=== PATIENT | male | born 1955 | race Caucasian/White ===

== ENCOUNTER 2016-11-04 20:08 | Emergency (ER) | payer OTHER ==
[2016-11-04 20:13] VITALS: BP 136/75; PULSE 66; TEMP 97; BMI 21.7
--- NOTE | 2016-11-04 20:27 | PDOC ---
History of Present Illness - General Chief Complaint: Back Pain Stated Complaint: ABDOMINAL PAIN Time Seen by Provider: 11/04/16 20:15 History Source: Patient Exam Limitations: No Limitations - History of Present Illness Initial Comments: 11/04/16 20:28 61-year-old male with a history of hypertension presents with right sided low back pain. Pain is described as 8/10 sharp, intermittent right sided back pain radiating down laterally to the right knee. Patient states he was picking up a heavy suitcase and attempted to turn laterally to the right when he felt a sudden pull to his right back. The pain is exacerbated on movement and there are no alleviating factors. Patient denies abdominal pain, saddle anesthesia, weakness, extremity numbness or tingling sensation. Patient denies any bladder or bowel dysfunction. Occurred: reports: this afternoon (at 12noon) Severity: reports: moderate Pain Location: reports: back (right) Method of Injury: Yes: other (twisting motion) Modifying Factors: improves with: None Loss of Consciousness: no loss of consciousness Past History - Past Medical History Allergies/Adverse Reactions: Allergies Allergy/AdvReac Type Severity Reaction Status Date / Time No Known Allergies Allergy Verified 11/04/16 20:12 Home Medications: Ambulatory Orders Amlodipine Besylate [Norvasc -] 5 mg PO DAILY 02/26/16 Tamsulosin HCl [Flomax] 0.4 mg PO DAILY 02/26/16 Valsartan [Diovan] 160 mg PO DAILY 02/26/16 Hydrocodone/Acetaminophen [Vicodin 5-300 mg Tablet] 1 each PO TID #15 tablet MDD 3 11/04/16 Diabetes: Yes (borderline) HTN: Yes - Surgical History Appendectomy: Yes - Immunization History Immunization Up to Date: No - Psycho/Social/Smoking Cessation Hx Anxiety: No Suicidal Ideation: No Smoking Status: No Smoking History: Never smoked Have you smoked in the past 12 months: No Number of Cigarettes Smoked Daily: 0 Hx Alcohol Use: No Drug/Substance Use Hx: No Substance Use Type: None Review of Systems - Review of Systems Able to Perform ROS?: Yes Comments:: 11/04/16 20:26 CONSTITUTIONAL: Absent: fever, chills, diaphoresis, generalized weakness, malaise, loss of appetite HEENT: Absent: rhinorrhea, nasal congestion, throat pain, throat swelling, difficulty swallowing, mouth swelling, ear pain, eye pain, visual Changes CARDIOVASCULAR: Absent: chest pain, loss of consciousness, palpitations, irregular heart rate, peripheral edema RESPIRATORY: Absent: cough, shortness of breath, dyspnea with exertion, orthopnea, wheezing, stridor, hemoptysis GASTROINTESTINAL: Absent: abdominal pain, abdominal distension, nausea, vomiting, diarrhea, constipation, melena, hematochezia GENITOURINARY: Absent: dysuria, frequency, urgency, hesitancy, hematuria, flank pain, genital pain MUSCULOSKELETAL: Absent: myalgia, arthralgia, joint swelling SKIN: Absent: rash, itching, pallor HEMATOLOGIC/IMMUNOLOGIC: Absent: easy bleeding, easy bruising, lymphadenopathy, frequent infections ENDOCRINE: Absent: unexplained weight gain, unexplained weight loss, heat intolerance, cold intolerance NEUROLOGIC: Absent: headache, focal weakness or paresthesias, dizziness, unsteady gait, seizure, mental status changes, bladder or bowel incontinence PSYCHIATRIC: Absent: anxiety, depression, suicidal or homicidal ideation, hallucinations. Is the patient limited Kyrgyz proficient: No *Physical Exam - Vital Signs Last Vital Signs Temp Pulse Resp BP Pulse Ox 97 F L 66 18 136/75 99 11/04/16 20:09 11/04/16 20:09 11/04/16 20:09 11/04/16 20:09 11/04/16 20:09 - Physical Exam Comments: 11/04/16 20:27 GENERAL: Well developed, well nourished. Awake and alert. No acute distress. HEENT: Normocephalic, atraumatic. PERRLA, EOMI. No conjunctival pallor. Sclera are non- icteric. Moist mucous membranes. Oropharynx is clear. NECK: Supple. Full ROM. No JVD. Carotid pulses 2+ and symmetric, without bruits. No thyromegaly. No lymphadenopathy. CARDIOVASCULAR: Regular rate and rhythm. No murmurs, rubs, or gallops. Distal pulses are 2+ and symmetric. PULMONARY: No evidence of respiratory distress. Lungs clear to auscultation bilaterally. No wheezing, rales or rhonchi. ABDOMINAL: Soft. Non-tender. Non-distended. No rebound or guarding. No organomegaly. Normoactive bowel sounds. MUSCULOSKELETAL Normal range of motion at all joints. No bony deformities or tenderness. No CVA tenderness. EXTREMITIES: No cyanosis. No clubbing. No edema. No calf tenderness. SKIN: Warm and dry. Normal capillary refill. No rashes. No jaundice. NEUROLOGICAL: Alert, awake, appropriate. Cranial nerves 2-12 intact. No deficits to light touch and temperature in face, upper extremities and lower extremities. No motor deficits in the in face, upper extremities and lower extremities. Normoreflexic in the upper and lower extremities. Normal speech. Toes are down- going bilaterally. Gait is normal without ataxia. PSYCHIATRIC: Cooperative. Good eye contact. Appropriate mood and affect. ED Treatment Course - RADIOLOGY Radiograph Interpretation: 11/04/16 21:56 XR: L/S spine; neg compression fx Progress Note - Progress Note Progress Note: 2150hrs: Minimal relief *DC/Admit/Observation/Transfer Diagnosis at time of Disposition: Lumbar spine strain Qualifiers: Encounter type: initial encounter Qualified Code(s): S39.012A - Strain of muscle, fascia and tendon of lower back, initial encounter - Discharge Dispostion Disposition: HOME Condition at time of disposition: Improved Admit: No - Prescriptions Prescriptions: Hydrocodone/Acetaminophen [Vicodin 5-300 mg Tablet] 1 each PO TID #15 tablet MDD 3 - Referrals Referrals: Noe Rollins MD [Primary Care Provider] - - Patient Instructions Printed Discharge Instructions: DI for Back Strain or Sprain Additional Instructions: Return to the ER for severe/persistent/worsening symptoms - Post Discharge Activity Work/School Note: Back to Work
[2016-11-04] MEDS ORDERED: KETOROLAC TROMETHAMINE 60 MG/2 ML VIAL IM ONE (20:28)
[2016-11-04] MEDS ORDERED: CYCLOBENZAPRINE HCL 10 MG TABLET (FP) PO ONE (20:28)
[2016-11-04] MEDS ORDERED: KETOROLAC TROMETHAMINE 60 MG/2 ML VIAL ONE (20:30)
[2016-11-04] MEDS ORDERED: CYCLOBENZAPRINE HCL 10 MG TABLET (FP) ONE (20:30)
[2016-11-04] MEDS ORDERED: OXYCODONE/APAP 5/325MG COMBO TABLET PO ONE (21:41)
[2016-11-04] MEDS ORDERED: OXYCODONE/APAP 5/325MG COMBO TABLET ONE (21:53)
== END 2016-11-04 23:24 | disposition home or self-care (01) ==
LOC: JER 20:08
PROC: 3E0233Z Introduction of Anti-inflammatory into Muscle, Percutaneous Approach (ICD-10-PCS; principal; 2016-11-04)
DX: S39.012A Strain of muscle, fascia and tendon of lower back, initial encounter (principal); X58.XXXA Exposure to other specified factors, initial encounter; Y93.9 Activity, unspecified; Y92.9 Unspecified place or not applicable; I10 Essential (primary) hypertension
CPT/HCPCS: 72100-TC; 96372; 99282-25

== ENCOUNTER 2017-07-30 20:59 | Emergency (ER) | payer OTHER, BC ==
--- NOTE | 2017-07-30 21:33 | PDOC ---
Rapid Medical Evaluation Time Seen by Provider: 07/30/17 21:27 Medical Evaluation: Allergies Allergy/AdvReac Type Severity Reaction Status Date / Time No Known Allergies Allergy Verified 11/04/16 20:12 07/30/17 21:27 I have performed a brief in-person person evaluation of the patient. The patient presents with a chief complaint of left wrist pain since fall in bathroom at 3:30pm today. States he was changing his clothes when he fell, used left arm to break fall. Denies dizziness before or after fall and denies head injury of loss of consciousness after fall. Pertinent physical exam findings: NAD unlabored breathing heart s1s2 left wrist swelling, deformity, + tenderness and inability to rom of left wrist I have ordered the following: analgesia, xray of left wrist and forearm The patient will proceed to the ED for further evaluation.
[2017-07-30] MEDS ORDERED: IBUPROFEN 600 MG TABLET (FP) PO ONE (21:35)
[2017-07-30 21:39] VITALS: BP 155/93; PULSE 68; TEMP 98.2; BMI 21.7
--- NOTE | 2017-07-30 22:50 | PDOC ---
History of Present Illness - General Chief Complaint: Pain Stated Complaint: FALL INJURY Time Seen by Provider: 07/30/17 21:27 History Source: Patient Exam Limitations: No Limitations - History of Present Illness Initial Comments: 07/30/17 22:47 Best Contact: Pmhx: Hypertension, enlarged prostate, hyperlipidemia Pshx: Ventral hernia repair, right rotator cuff repair Allergies: NO KNOWN DRUG ALLERGIES 62-year-old male who is right hand dominant presents to the emergency department complaining of pain to the left hand/wrist since approximately 1530 hrs. this afternoon after a slip and fall. Patient states he broke his fall with his outstretched left hand. Patient states he was changing into his clothes when he slipped this afternoon. He denies hitting his head, neck or back. Patient denies headache, dizziness, lightheadedness, facial pains, neck pains, back pains, chest pain, shortness of breath, abdominal pains, extremity numbness or tingling sensation. Wrist pain is described as 5/10 dull nonradiating intermittent discomfort which is exacerbated on touch and alleviated at rest. Past History - Past Medical History Allergies/Adverse Reactions: Allergies Allergy/AdvReac Type Severity Reaction Status Date / Time No Known Allergies Allergy Verified 07/30/17 21:32 Home Medications: Ambulatory Orders Amlodipine Besylate [Norvasc -] 5 mg PO DAILY 02/26/16 COPD: No Diabetes: Yes (borderline) HTN: Yes - Surgical History Appendectomy: Yes - Immunization History Immunization Up to Date: No - Suicide/Smoking/Psychosocial Hx Smoking Status: No Smoking History: Never smoked Have you smoked in the past 12 months: No Number of Cigarettes Smoked Daily: 0 Information on smoking cessation initiated: No Hx Alcohol Use: No Drug/Substance Use Hx: No Substance Use Type: None Review of Systems - Review of Systems Able to Perform ROS?: Yes Comments:: 07/30/17 22:51 CONSTITUTIONAL: Absent: fever, chills, diaphoresis, generalized weakness, malaise, loss of appetite HEENT: Absent: rhinorrhea, nasal congestion, throat pain, throat swelling, difficulty swallowing, mouth swelling, ear pain, eye pain, visual Changes CARDIOVASCULAR: Absent: chest pain, loss of consciousness, palpitations, irregular heart rate, peripheral edema RESPIRATORY: Absent: cough, shortness of breath, dyspnea with exertion, orthopnea, wheezing, stridor, hemoptysis GASTROINTESTINAL: Absent: abdominal pain, abdominal distension, nausea, vomiting, diarrhea, constipation, melena, hematochezia GENITOURINARY: Absent: dysuria, frequency, urgency, hesitancy, hematuria, flank pain, genital pain MUSCULOSKELETAL: +left hand/wrist pain Absent: myalgia, arthralgia, joint swelling SKIN: Absent: rash, itching, pallor HEMATOLOGIC/IMMUNOLOGIC: Absent: easy bleeding, easy bruising, lymphadenopathy, frequent infections Is the patient limited [place]dean proficient: No *Physical Exam - Vital Signs Last Vital Signs Temp Pulse Resp BP Pulse Ox 98.2 F 68 20 155/93 100 07/30/17 21:33 07/30/17 21:33 07/30/17 21:33 07/30/17 21:33 07/30/17 21:33 - Physical Exam Comments: 07/30/17 22:51 GENERAL: Well developed, well nourished. Awake and alert. No acute distress. HEENT: Normocephalic, atraumatic. PERRLA, EOMI. No conjunctival pallor. Sclera are non- icteric. Moist mucous membranes. Oropharynx is clear. NECK: Supple. Full ROM. No JVD. Carotid pulses 2+ and symmetric, without bruits. No thyromegaly. No lymphadenopathy. MUSCULOSKELETAL Normal range of motion at all joints. No bony deformities or tenderness. No CVA tenderness. EXTREMITIES: No cyanosis. No clubbing. No edema. No calf tenderness. SKIN: Warm and dry. Normal capillary refill. No rashes. No jaundice. NEUROLOGICAL: Alert, awake, appropriate. Cranial nerves 2-12 intact. No deficits to light touch and temperature in face, upper extremities and lower extremities. No motor deficits in the in face, upper extremities and lower extremities. Normoreflexic in the upper and lower extremities. Normal speech. Toes are down- going bilaterally. Gait is normal without ataxia. Left hand Decreased R.O.M>/pain to dorsal 2nd and 3rd MC Cap refill <2sec 2 point sensation intact Left wrist 2+ radial pulse Neg pain on palp NEg obv deformities ED Treatment Course - Medications Given in the ED: ED Medications Discontinued Medications Generic Name Dose Route Start Last Admin Trade Name Freq PRN Reason Stop Dose Admin Ibuprofen 600 mg 07/30/17 21:35 07/30/17 21:37 Motrin - PO 07/30/17 21:36 600 mg ONCE ONE Administration *DC/Admit/Observation/Transfer Diagnosis at time of Disposition: Contusion of left hand Qualifiers: Encounter type: initial encounter Qualified Code(s): S60.222A - Contusion of left hand, initial encounter Left wrist sprain Qualifiers: Encounter type: initial encounter Qualified Code(s): S63.502A - Unspecified sprain of left wrist, initial encounter - Discharge Dispostion Disposition: HOME Condition at time of disposition: Stable Admit: No - Referrals Referrals: Geoff Michelle MD [Primary Care Provider] - Jermaine Villalobos MD [Staff Physician] - - Patient Instructions Printed Discharge Instructions: DI for Wrist Sprain, DI for Contusion Additional Instructions: Ice; 20 mins on alternating with 20 mins off for 48 hours while awake. Rest Elevate Follow up with your orthopedic surgeon or the one listed on the discharge form. Return to the ER for severe/persistent/worsening symptoms, extremity numbness/ tingling sensation. Print Language: MALAGASY - Post Discharge Activity
== END 2017-07-30 22:30 | disposition home or self-care (01) ==
LOC: JERFT 20:59
CPT/HCPCS: 73110-TC-LR-FY; 73130-TC-LR-FY; 99281-25

== ENCOUNTER 2020-10-09 09:10 | Emergency (ER) | payer BC, OTHER ==
[2020-10-09 09:19] VITALS: BP 134/81; PULSE 113; TEMP 98.2; BMI 21.7
[2020-10-09] MEDS ORDERED: ACETAMINOPHEN 1000 MG/100 ML VIAL (NON FORMULARY) IVPB ONE (10:01)
[2020-10-09] MEDS ORDERED: SODIUM CHLORIDE 1,000 ML IV STA (10:01)
[2020-10-09] MEDS ORDERED: ONDANSETRON 4 MG/2 ML VIAL IVPUSH ONE (10:01)
[2020-10-09] MEDS ORDERED: FAMOTIDINE 20 MG/50 ML IVPB 20 MG/50 ML MG IVPB ONE ×2 (10:01→10:07)
[2020-10-09] MEDS ORDERED: MAG HYDROX/AL HYDROX/SIMETH 30 ML UNIT-DOSE CUP PO ONE (10:02)
[2020-10-09] MEDS ORDERED: MAG HYDROX/AL HYDROX/SIMETH 30 ML UNIT-DOSE CUP ONE (10:07)
[2020-10-09] MEDS ORDERED: ONDANSETRON 4 MG/2 ML VIAL ONE (10:07)
[2020-10-09] MEDS ORDERED: ACETAMINOPHEN INJECTION 100 ML IVPB ONE (10:07)
[2020-10-09 10:43] LABS: BASO % 0.6 % (0-2.0); EOS % 1.4 % (0-4.5); HEMATOCRIT 39.5 % (35.4-49); HEMOGLOBIN 13.3 GM/dL (11.7-16.9); LYMPH % 13.7 % (8-40); MCH 29.3 pg (25.7-33.7); MCHC 33.8 g/dl (32.0-35.9); MEAN CELL VOLUME 86.6 fl (80-96); MEAN PLT VOLUME 7.9 fl (7.5-11.1); MONO % 4.8 % (3.8-10.2); NEUT % 79.5 % (42.8-82.8); PLATELET COUNT 252 K/MM3 (134-434); RBC 4.56 M/mm3 (4.00-5.60); RDW 13.8 % (11.9-15.9)
[2020-10-09 10:46] LABS: PH,URINE 5.5 (5.0-8.0); URINE APPEARANCE CLEAR; URINE BILIRUBIN NEGATIVE (NEGATIVE); URINE COLOR YELLOW; URINE GLUCOSE (UA) NEGATIVE (NEGATIVE); URINE KETONE TRACE (NEGATIVE); URINE LEUK ESTERASE NEGATIVE (NEGATIVE); URINE NITRITE NEGATIVE (NEGATIVE); URINE PROTEIN NEGATIVE (NEGATIVE); URINE UROBILINOGEN 0.2 mg/dL (0.2-1.0)
[2020-10-09 10:50] LABS: INR 0.98 (0.83-1.09); PROTHROMBIN TIME (PATIENT) 11.9 SEC (9.7-13.0)
[2020-10-09 11:18] LABS: CHLORIDE 105 mmol/L (98-107); SODIUM 137 mmol/L (136-145)
[2020-10-09 11:20] LABS: ALBUMIN 3.9 g/dl (3.4-5.0); ANION GAP 4 MMOL/L (8-16); BLOOD UREA NITROGEN 24.4 mg/dL (7-18); CALCIUM 8.7 mg/dL (8.5-10.1); CO2 28 mmol/L (21-32)
[2020-10-09 11:21] LABS: GLUCOSE,RANDOM 104 mg/dL (74-106); LIPASE 114 U/L (73-393)
[2020-10-09 11:23] LABS: SGOT/AST 33 U/L (15-37); SGPT/ALT 44 U/L (13-61)
[2020-10-09 11:25] LABS: BILIRUBIN,TOTAL 0.4 mg/dL (0.2-1); TOT PROT 7.6 g/dl (6.4-8.2)
[2020-10-09 11:26] LABS: ALK PHOS 64 U/L (45-117)
== END 2020-10-09 12:28 | disposition home or self-care (01) ==
LOC: JER 09:10
PROC: 3E0333Z Introduction of Anti-inflammatory into Peripheral Vein, Percutaneous Approach (ICD-10-PCS; principal; 2020-10-09)
PROC: 3E033GC Introduction of Other Therapeutic Substance into Peripheral Vein, Percutaneous Approach (ICD-10-PCS; 2020-10-09)
PROC: 3E033GC Introduction of Other Therapeutic Substance into Peripheral Vein, Percutaneous Approach (ICD-10-PCS; 2020-10-09)
PROC: 3E0337Z Introduction of Electrolytic and Water Balance Substance into Peripheral Vein, Percutaneous Approach (ICD-10-PCS; 2020-10-09)
DX: K29.00 Acute gastritis without bleeding (principal)
CPT/HCPCS: 36415; 76705-TC; 80053; 81003; 82550; 82553; 83690; 84484; 85025; 85610; 87086; 93005; 93010; 99285-25; J0131

== ENCOUNTER 2021-10-12 10:28 | Observation (INO) | payer OTHER ==
[2021-10-12] MEDS ORDERED: SODIUM CHLORIDE 1,000 ML IV SCH (12:00)
[2021-10-12 13:06] LABS: PH,URINE 5.5 (5.0-8.0); URINE APPEARANCE CLEAR; URINE BILIRUBIN NEGATIVE (NEGATIVE); URINE COLOR YELLOW; URINE GLUCOSE (UA) NEGATIVE (NEGATIVE); URINE KETONE NEGATIVE (NEGATIVE); URINE LEUK ESTERASE NEGATIVE (NEGATIVE); URINE NITRITE NEGATIVE (NEGATIVE); URINE PROTEIN NEGATIVE (NEGATIVE); URINE UROBILINOGEN 0.2 mg/dL (0.2-1.0)
[2021-10-12 13:09] LABS: BASO % 0.6 % (0-2.0); EOS % 1.6 % (0-4.5); HEMATOCRIT 37.6 % (35.4-49); HEMOGLOBIN 12.9 GM/dL (11.7-16.9); LYMPH % 32.6 % (8-40); MCH 29.1 pg (25.7-33.7); MCHC 34.2 g/dl (32.0-35.9); MEAN CELL VOLUME 85.2 fl (80-96); MEAN PLT VOLUME 7.6 fl (7.5-11.1); MONO % 7.2 % (3.8-10.2); PLATELET COUNT 216 10^3/uL (134-434); RBC 4.42 M/mm3 (4.00-5.60); RDW 13.7 % (11.9-15.9); WHITE BLOOD COUNT 4.6 K/mm3 (4.0-10.0)
[2021-10-12 13:14] LABS: ALBUMIN 3.9 g/dl (3.4-5.0); BLOOD UREA NITROGEN 16.2 mg/dL (7-18); CALCIUM 9.2 mg/dL (8.5-10.1)
[2021-10-12 13:17] LABS: CREATININE 0.8 mg/dL (0.55-1.3)
[2021-10-12 13:19] LABS: BILIRUBIN,TOTAL 0.5 mg/dL (0.2-1); INR 1.03 (0.83-1.09); PROTHROMBIN TIME (PATIENT) 11.8 SEC (9.7-13.0); TOT PROT 7.2 g/dl (6.4-8.2)
[2021-10-12 13:23] LABS: ACTIVATED PTT 35.8 SECONDS (25.2-36.5)
[2021-10-12] MEDS ORDERED: ASPIRIN 325 MG ENTERIC COATED TABLET (FP) PO ONE (14:09)
[2021-10-12] MEDS ORDERED: ASPIRIN COATED 81 MG TABLET.EC ONE (14:14)
[2021-10-12] MEDS: FAMOTIDINE 20 MG TABLET PO SCH (23:00)
[2021-10-12] MEDS: HEPARIN NA (PORCINE) 5,000 UNITS/ML 1ML VIAL SQ SCH (23:00)
[2021-10-12] MEDS: MONTELUKAST NA 10 MG TABLET PO SCH (23:00)
[2021-10-12] MEDS ORDERED: HEPARIN NA (PORCINE) 5,000 UNITS/ML 1ML VIAL ONE (23:02)
[2021-10-12] MEDS ORDERED: FAMOTIDINE 20 MG TABLET ONE ×2 (23:02→23:16)
[2021-10-12] MEDS ORDERED: MONTELUKAST NA 10 MG TABLET ONE (23:02)
[2021-10-13] MEDS: ROSUVASTATIN CA 20 MG TABLET PO SCH ×2 (00:23→21:47)
[2021-10-13 02:20] VITALS: BMI 19.5
[2021-10-13 07:51] LABS: BASO % 0.6 % (0-2.0); EOS % 2.2 % (0-4.5); HEMATOCRIT 38.5 % (35.4-49); LYMPH % 24.8 % (8-40); MCH 28.7 pg (25.7-33.7); MCHC 33.8 g/dl (32.0-35.9); MEAN CELL VOLUME 85.1 fl (80-96); MEAN PLT VOLUME 7.6 fl (7.5-11.1); MONO % 8.8 % (3.8-10.2); NEUT % 63.6 % (42.8-82.8); PLATELET COUNT 211 10^3/uL (134-434); RBC 4.53 M/mm3 (4.00-5.60); RDW 13.6 % (11.9-15.9); WHITE BLOOD COUNT 4.8 K/mm3 (4.0-10.0)
[2021-10-13 08:27] LABS: ALBUMIN 3.5 g/dl (3.4-5.0); BLOOD UREA NITROGEN 15.8 mg/dL (7-18); CALCIUM 9.2 mg/dL (8.5-10.1)
[2021-10-13 08:30] LABS: CREATININE 0.8 mg/dL (0.55-1.3)
[2021-10-13 08:32] LABS: BILIRUBIN,TOTAL 1.3 mg/dL (0.2-1); TOT PROT 6.6 g/dl (6.4-8.2)
[2021-10-13] MEDS: ASPIRIN COATED 81 MG TABLET.EC PO SCH (10:28)
[2021-10-13] MEDS: LOSARTAN POTASSIUM 25 MG TABLET PO SCH (10:28)
[2021-10-13] MEDS: amLODIPine BESYLATE 5 MG TABLET (FP) PO SCH (10:28)
[2021-10-13] MEDS: HEPARIN NA (PORCINE) 5,000 UNITS/ML 1ML VIAL SQ SCH ×2 (10:28→21:47)
[2021-10-13] MEDS: FAMOTIDINE 20 MG TABLET PO SCH ×2 (10:28→21:47)
[2021-10-13] MEDS ORDERED: ACETAMINOPHEN 325 MG TABLET (FP) PO PRN (18:54)
[2021-10-13] MEDS: MONTELUKAST NA 10 MG TABLET PO SCH (21:47)
[2021-10-14 01:36] VITALS: TEMP 97.6
[2021-10-14] MEDS: ASPIRIN COATED 81 MG TABLET.EC PO SCH (10:00)
[2021-10-14] MEDS: FAMOTIDINE 20 MG TABLET PO SCH (10:00)
[2021-10-14] MEDS: LOSARTAN POTASSIUM 25 MG TABLET PO SCH (10:00)
[2021-10-14] MEDS: HEPARIN NA (PORCINE) 5,000 UNITS/ML 1ML VIAL SQ SCH (10:00)
[2021-10-14] MEDS: amLODIPine BESYLATE 5 MG TABLET (FP) PO SCH (10:00)
[2021-10-14 15:50] VITALS: BP 112/68; PULSE 68
== END 2021-10-14 17:44 | disposition home or self-care (01) ==
LOC: JER 10:28 → JERBED 14:13 → UNDOADMOB 14:13 → INTOOBSV 14:13 → JERBED 15:57 → J4S 23:39
PROVIDERS: ADMIT Family Medicine; ATTEND Family Medicine
PROC: 3E023GC Introduction of Other Therapeutic Substance into Muscle, Percutaneous Approach (ICD-10-PCS; principal; 2021-10-12)
PROC: 3E0337Z Introduction of Electrolytic and Water Balance Substance into Peripheral Vein, Percutaneous Approach (ICD-10-PCS; 2021-10-12)
DX: J45.909 Unspecified asthma, uncomplicated (principal); E78.5 Hyperlipidemia, unspecified; I10 Essential (primary) hypertension; R73.03 Prediabetes; R29.810 Facial weakness; K21.9 Gastro-esophageal reflux disease without esophagitis; G45.9 Transient cerebral ischemic attack, unspecified; R44.8 Other symptoms and signs involving general sensations and perceptions
CPT/HCPCS: 36415; 70450-TC; 70551-TC; 80053; 80061; 81003; 82607; 83036; 84443; 84484; 85025; 85610; 85730; 86850; 86900; 86901; 93005; 93010; 93306-TC; 93880-TC; 96372; 99285-25; C9803-CS; G0378; J1644; U0003; U0005

== ENCOUNTER 2023-01-15 05:44 | Emergency (ER) | payer MEDICARE ==
[2023-01-15 06:23] VITALS: RESP 18; TEMP 97; BMI 25.4
[2023-01-15 07:10] LABS: BASO % 0.7 % (0-2.0); EOS % 1.5 % (0-4.5); HEMATOCRIT 36.5 % (35.4-49); HEMOGLOBIN 11.9 GM/dL (11.7-16.9); LYMPH % 25.5 % (8-40); MCH 27.5 pg (25.7-33.7); MCHC 32.4 g/dl (32.0-35.9); MEAN CELL VOLUME 84.9 fl (80-96); MEAN PLT VOLUME 8.1 fl (7.5-11.1); MONO % 9.2 % (3.8-10.2); NEUT % 63.1 % (42.8-82.8); PLATELET COUNT 192 10^3/uL (134-434); RDW 14.3 % (11.9-15.9); WHITE BLOOD COUNT 4.3 K/mm3 (4.0-10.0)
[2023-01-15 07:26] LABS: PROTHROMBIN TIME (PATIENT) 11.6 SEC (9.7-13.0)
[2023-01-15 07:58] LABS: POTASSIUM 4.5 mmol/L (3.5-5.1)
[2023-01-15 08:00] LABS: ALBUMIN 3.5 g/dl (3.4-5.0); BLOOD UREA NITROGEN 17.4 mg/dL (7-18); CALCIUM 8.9 mg/dL (8.5-10.1)
[2023-01-15 08:04] LABS: CREATININE 0.9 mg/dL (0.55-1.3)
[2023-01-15 08:05] LABS: BILIRUBIN,TOTAL 0.3 mg/dL (0.2-1); TOT PROT 6.6 g/dl (6.4-8.2)
[2023-01-15] MEDS ORDERED: SODIUM CHLORIDE 0.9% 500 ML INFUS.BAG IV ONE (09:18)
[2023-01-15] MEDS ORDERED: METOCLOPRAMIDE HCL INJECTION 10 MG/2 ML VIAL IVPUSH ONE (09:27)
[2023-01-15 10:18] VITALS: BP 127/73; PULSE 74
== END 2023-01-15 10:24 | disposition home or self-care (01) ==
LOC: JER 05:44
DX: R55 Syncope and collapse (principal); R42 Dizziness and giddiness; I95.1 Orthostatic hypotension; R06.02 Shortness of breath
CPT/HCPCS: 36415; 70450-TC; 71045-TC-FY; 72125-TC; 80053; 82962; 84484; 85025; 85610; 85730; 93005; 93010; 99285-25